=== PATIENT | male | born 1960 | race African-American/Black ===

== ENCOUNTER 2019-07-22 08:00 | Emergency (ER) | payer MEDICAID ==
[~2019-07-22] VITALS: Ht 180.3 cm; Wt 98.0 kg
[2019-07-22 08:02] VITALS: BP 131/72
--- NOTE | 2019-07-22 08:22 | NUR ---
ANNEALER: PT TO ROOM FROM [facility]
[2019-07-22 10:10] LABS: RAPID INFLUENZA A Negative (Negative); RAPID INFLUENZA B Negative (Negative)
== END 2019-07-22 11:11 | disposition home or self-care (01) ==
LOC: ED 10:22
DX: J00 Acute nasopharyngitis [common cold] (principal); J04.0 Acute laryngitis; B97.89 Other viral agents as the cause of diseases classified elsewhere; F17.200 Nicotine dependence, unspecified, uncomplicated
CPT/HCPCS: 71046; 87400; 99284

== ENCOUNTER 2019-10-12 10:33 | Emergency (ER) | payer MEDICAID ==
[~2019-10-12] VITALS: Ht 180.3 cm; Wt 96.0 kg
--- NOTE | 2019-10-12 10:39 | NUR ---
PT BIB [facility] FROM WORK. PER EMS, EMS CALLED TO SCENE FOR POSSIBLE SEIZURE AND POSSIBLE SYNCOPAL EVENT. PER EMS, [facility] 124 AND PT AAO X 4 FOR EMS. PT ARRIVED TO ED SITTING UPRIGHT ON GUIRNEY, AAO X 4, NAD, ROOM AIR, DRESSED IN GOWN AND ON FULL MONITOR. CALL LIGHT WITHIN REACH AND SIDERIAL X [address] WITH SEIZURE PADS IN PLACE. PER EMS, PT HAS HX SEIZURES AND NO LONGER TAKES MEDS FOR IT DUE TO FINANCIAL REASONS. PER EMS, PT HAD NO INCONTINENCE OR ORAL TRAUMA FROM SEIZURE. PIV ESTABLISHED EN ROUTE BY EMS.
--- NOTE | 2019-10-12 10:48 | NUR ---
AT BEDSIDE FOR EXAM.
--- NOTE | 2019-10-12 11:05 | NUR ---
PT TO CT.
--- NOTE | 2019-10-12 11:18 | NUR ---
PT BACK FROM CT.
--- NOTE | 2019-10-12 11:19 | NUR ---
LAB AT BEDSIDE.
[2019-10-12 11:42] LABS: ALBUMIN 3.3 g/dL (3.4-5.0); ANION GAP 7 mmol/L (5-15); CALCIUM 8.6 mg/dL (8.5-10.1); CHLORIDE 110 mmol/L (98-107)
[2019-10-12 11:45] LABS: ALANINE AMINOTRANSFERASE 26 U/L (12-78); ALKALINE PHOSPHATASE 76 U/L (45-117); BILIRUBIN,TOTAL 0.6 mg/dL (0.2-1.0); CREATININE 0.82 mg/dL (0.7-1.3); TOTAL PROTEIN 7.1 g/dL (6.4-8.2)
[2019-10-12 11:58] LABS: MEAN CORPUSCULAR HEMOGLOBIN 28.9 pg (27.5-34.5); MEAN CORPUSCULAR HGB CONC 32.1 g/dL (33.2-36.2); MEAN CORPUSCULAR VOLUME 90.2 fL (81-97); MEAN PLATELET VOLUME 10.1 fL (7.4-10.4); PLATELET COUNT 160 x10^3/uL (130-400); RED BLOOD COUNT 4.81 x10^6/uL (4.38-5.82); RED CELL DISTRIBUTION WIDTH 13.3 % (9.4-14.8)
[2019-10-12 12:00] LABS: MD SCAN
[2019-10-12 12:01] LABS: BASOPHILS # (AUTO) 0.01 x10^3/uL (0-0.1); BASOPHILS % (AUTO) 0 % (0-1); EOSINOPHILS # (AUTO) 0.07 x10^3/uL (0-0.4); EOSINOPHILS % (AUTO) 1 % (1-7); LYMPHOCYTES # (AUTO) 1.44 x10^3/uL (1-3.4); LYMPHOCYTES % (AUTO) 21 % (22-44); MONOCYTES # (AUTO) 0.39 x10^3/uL (0.2-0.8); MONOCYTES % (AUTO) 6 % (2-9); NEUTROPHILS # (AUTO) 4.93 x10^3/uL (1.8-6.8); NEUTROPHILS % (AUTO) 72 % (42-75)
--- NOTE | 2019-10-12 12:17 | NUR ---
ALL RESULTS BACK AT THIS TIME, CHART UP FOR RECHECK.
[2019-10-12] MEDS ORDERED: LEVETIRACETAM 1,500 MG in SODIUM CHLORIDE 0.9% 100 ML IV ONE (12:30)
[2019-10-12 12:55] VITALS: BP 117/62
--- NOTE | 2019-10-12 13:28 | NUR ---
Patient/Caregiver given discharge instructions and they have confirmed that they understand the instructions. Patient ambulatory with steady gait.
== END 2019-10-12 13:45 | disposition home or self-care (01) ==
LOC: ED 13:35
DX: R56.9 Unspecified convulsions (principal); R51 Headache
CPT/HCPCS: 36415; 70450; 71045; 80053; 83605; 85025; 93005; 96365; 99285; J1953

== ENCOUNTER 2020-02-16 05:01 | Emergency (ER) | payer MEDICAID ==
[~2020-02-16] VITALS: Ht 180.3 cm; Wt 100.4 kg
[2020-02-16 05:02] VITALS: BP 139/78
--- NOTE | 2020-02-16 05:09 | NUR ---
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
[2020-02-16] MEDS ORDERED: KETOROLAC 30 MG/1 ML IM ONE (05:30)
[2020-02-16] MEDS ORDERED: METHOCARBAMOL 750 MG TABLET PO ONE (05:30)
[2020-02-16] MEDS ORDERED: METHOCARBAMOL 750 MG TABLET ONE (05:31)
[2020-02-16] MEDS ORDERED: KETOROLAC 30 MG/1 ML ONE (05:31)
== END 2020-02-16 06:51 ==
LOC: ED 06:40
DX: S46.812A Strain of other muscles, fascia and tendons at shoulder and upper arm level, left arm, initial encounter (principal); R94.31 Abnormal electrocardiogram [ECG] [EKG]; F17.290 Nicotine dependence, other tobacco product, uncomplicated; W20.8XXA Other cause of strike by thrown, projected or falling object, initial encounter; Y93.89 Activity, other specified; Y92.89 Other specified places as the place of occurrence of the external cause; Y99.0 Civilian activity done for income or pay
CPT/HCPCS: 71046; 73030; 93005; 96372; 99284; J1885

== ENCOUNTER 2020-02-19 06:17 | Emergency (ER) | payer MEDICAID ==
[~2020-02-19] VITALS: Ht 177.8 cm; Wt 102.1 kg
--- NOTE | 2020-02-19 07:04 | NUR ---
ASSUMED CARE OF PT AT THIS TIME FROM [facility] AT THIS TIME. AMBULATORY TO ROOM WITH STEADY GAIT. A&OX4. 59 Y/O M PRESENTS STATING "LEFT ARM PAIN WORSE AFTER HELPING DAUGHTER MOVE OR WHEN PANS FELL ON ME AT WORK," SEEN HERE 5 DAYS AGO FOR SAME, DX WITH MUSCLE STRAIN. CMS INTACT. RADIAL PULSE NORMAL AND STRONG. +ROM. PT STATES "I WANT TO WORK AND I NEED A NOTE FOR WORK FOR RESTRICTED DUTY OF MY BOSS WON'T LET ME WORK BECAUSE I WAS FAVORING IT." CONT PULSE OX, BP MONITORS APPLIED. VSS. CALL LIGHT IN REACH. FALL PRECUATIONS IN PLACE. SJ HERNANDEZ AT BEDSIDE FOR EVAL, AWAITING ORDERS.
--- NOTE | 2020-02-19 07:47 | NUR ---
PT AMBULATORY TO RESTROOM WITH STEADY GAIT. RESTING COMFORTABLY. VSS. CMS INTACT. AWAITING DISCHARGE PAPERS AND WORK NOTE FROM [facility]
[2020-02-19 08:10] VITALS: BP 140/84
== END 2020-02-19 08:29 | disposition home or self-care (01) ==
LOC: ED 07:50
DX: M25.512 Pain in left shoulder (principal)
CPT/HCPCS: 99282

== ENCOUNTER 2020-04-15 07:18 | Emergency (ER) | payer MEDICAID ==
[~2020-04-15] VITALS: Ht 180.3 cm; Wt 98.3 kg
--- NOTE | 2020-04-15 07:39 | NUR ---
PT AMBULATORY TO ROOM 7 W/ C/O LOWER BACK PAIN STARTED 2 DAYS AGO. PT STATES IT STARTED WHEN HE AWOKE AND IT GOT WORSE THROUGHOUT THE DAY WHILE AT WORK. DENIES LIFTING ANYTHING HEAVY. DENIES INJURY/TRAUMA TO AREA. PT RESTING ON GURNEY. NADN. EUCEDA. JACE WOOTEN AT BEDSIDE.
[2020-04-15 07:45] VITALS: BP 110/73
--- NOTE | 2020-04-15 07:45 | NUR ---
PT RESTING ON GURNEY. NADN. EUCEDA.
[2020-04-15] MEDS ORDERED: KETOROLAC 30 MG/1 ML IM ONE (08:00)
[2020-04-15] MEDS ORDERED: ONDANSETRON ODT 4 MG PO ONE (08:00)
[2020-04-15] MEDS ORDERED: HYDROcodone/APAP 5/325 TABLET PO ONE (08:00)
[2020-04-15] MEDS ORDERED: CYCLOBENZAPRINE 10 MG TABLET PO ONE (08:00)
--- NOTE | 2020-04-15 08:07 | NUR ---
PT TO AND FROM XR IN STABLE CONDITION.
[2020-04-15] MEDS ORDERED: ONDANSETRON ODT 4 MG ONE (08:10)
[2020-04-15] MEDS ORDERED: HYDROcodone/APAP 5/325 TABLET ONE (08:11)
[2020-04-15] MEDS ORDERED: KETOROLAC 30 MG/1 ML ONE (08:11)
[2020-04-15] MEDS ORDERED: CYCLOBENZAPRINE 10 MG TABLET ONE (08:17)
--- NOTE | 2020-04-15 08:38 | NUR ---
Patient/Caregiver given discharge instructions and they have confirmed that they understand the instructions. Patient ambulatory with steady gait.
== END 2020-04-15 08:40 | disposition home or self-care (01) ==
LOC: ED 08:00
DX: M54.42 Lumbago with sciatica, left side (principal)
CPT/HCPCS: 72110; 96372; 99283; J1885; Q0162

== ENCOUNTER 2020-06-08 14:00 | Emergency (ER) | payer MEDICAID ==
[~2020-06-08] VITALS: Ht 180.3 cm; Wt 99.1 kg
[2020-06-08 14:22] VITALS: BP 125/73
--- NOTE | 2020-06-08 15:23 | NUR ---
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
--- NOTE | 2020-06-08 15:28 | NUR ---
PATIENT WALKED BACK FROM TRIAGE WITH CHIEF C/O HAND LACERATION. PATIENT STATES HE WAS AT WORK, AT THE [employer] AND CUT HIS RIGHT HAND ABOUT 1300. LACERATION IS NOT BLEEDING, LOCATED BETWEEN THUMB AND POINTER FINGER. NO SIGNS OF ACUTE DISTRESS.
[2020-06-08] MEDS ORDERED: LIDOCAINE-MPF 1%, 5ML ONE (16:15)
--- NOTE | 2020-06-08 16:20 | NUR ---
ER PA AT BEDSIDE FOR SUTURE PLACEMENT
[2020-06-08] MEDS ORDERED: LIDOCAINE 1%, 10ML INFIL ONE (16:30)
[2020-06-08] MEDS ORDERED: NEOSPORIN OINT. PKT 1 PACKET ONE (16:37)
--- NOTE | 2020-06-08 16:49 | NUR ---
Patient given discharge instructions and they have confirmed that they understand the instructions, all questions answered. Workers Comp paperwork given to patient filled out. Patient ambulatory with steady gait to discharge desk.
== END 2020-06-08 16:50 | disposition home or self-care (01) ==
LOC: ED 15:35
DX: S61.210A Laceration without foreign body of right index finger without damage to nail, initial encounter (principal); F17.200 Nicotine dependence, unspecified, uncomplicated; W26.0XXA Contact with knife, initial encounter; Y93.89 Activity, other specified; Y92.89 Other specified places as the place of occurrence of the external cause; Y99.0 Civilian activity done for income or pay
CPT/HCPCS: 12001; 99282

== ENCOUNTER 2020-10-29 08:09 | Emergency (ER) | payer MEDICAID ==
[~2020-10-29] VITALS: Ht 180.3 cm; Wt 102.5 kg
--- NOTE | 2020-10-29 08:36 | NUR ---
60 YO MALE CAME IN W/ C/O LOW BACK PAIN THAT RAIDATES TO UPPER BACK FROM BENDING OVER AT WORK. 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 PT STATES PAIN IS 10/10 WHEN MOVING. PT STATES IT IS DIFFICULT TO PREFORM ADLS. PATIENT RESTING IN BED TO COMFORT WITH FAMILY AT BEDSIDE. PT STATES FOR THE LAST 6 YEARS HAS HAD BACK PAIN, THIS PAIN IS DIFFERENT "BECAUSE I CANNOT BEND OVER"
[2020-10-29] MEDS ORDERED: KETOROLAC 60 MG/2 ML ONE (08:58)
[2020-10-29] MEDS ORDERED: CYCLOBENZAPRINE 10 MG TABLET ONE (08:58)
[2020-10-29] MEDS ORDERED: KETOROLAC 30 MG/1 ML IM ONE (09:00)
[2020-10-29] MEDS ORDERED: CYCLOBENZAPRINE 10 MG TABLET PO ONE (09:00)
[2020-10-29 09:07] VITALS: BP 135/72
== END 2020-10-29 09:58 | disposition home or self-care (01) ==
LOC: ED 09:01
DX: S39.012A Strain of muscle, fascia and tendon of lower back, initial encounter (principal); F17.200 Nicotine dependence, unspecified, uncomplicated; X58.XXXA Exposure to other specified factors, initial encounter; Y93.89 Activity, other specified; Y92.89 Other specified places as the place of occurrence of the external cause; Y99.8 Other external cause status
CPT/HCPCS: 96372; 99283; J1885

== ENCOUNTER 2021-01-02 10:45 | Emergency (ER) | payer MEDICAID ==
[~2021-01-02] VITALS: Ht 175.3 cm; Wt 104.9 kg
[2021-01-02] MEDS ORDERED: METHOCARBAMOL 750 MG TABLET PO ONE (11:30)
[2021-01-02] MEDS ORDERED: KETOROLAC 30 MG/1 ML IM ONE (11:30)
[2021-01-02] MEDS ORDERED: METHOCARBAMOL 750 MG TABLET ONE (11:37)
[2021-01-02] MEDS ORDERED: KETOROLAC 30 MG/1 ML ONE (11:37)
[2021-01-02 11:43] LABS: BASOPHILS % (AUTO) 1 % (0-1); EOSINOPHILS % (AUTO) 2 % (1-7); LYMPHOCYTES % (AUTO) 24 % (22-44); MEAN CORPUSCULAR HGB CONC 32.2 g/dL (33.2-36.2); MEAN PLATELET VOLUME 9.9 fL (7.4-10.4); MONOCYTES % (AUTO) 6 % (2-9); NEUTROPHILS % (AUTO) 68 % (42-75); PLATELET COUNT 174 x10^3/uL (130-400); RED BLOOD COUNT 5.19 x10^6/uL (4.38-5.82); RED CELL DISTRIBUTION WIDTH 13.6 % (9.4-14.8)
[2021-01-02 11:51] LABS: ALBUMIN 3.6 g/dL (3.4-5.0); ANION GAP 4 mmol/L (5-15); CALCIUM 8.9 mg/dL (8.5-10.1); CHLORIDE 107 mmol/L (98-107); CREATININE 0.94 mg/dL (0.7-1.3)
[2021-01-02 12:10] LABS: MD SCAN
[2021-01-02 12:37] LABS: MICROSCOPIC NOT IND
[2021-01-02 13:21] VITALS: BP 147/82
== END 2021-01-02 13:22 | disposition home or self-care (01) ==
LOC: ED 11:23
DX: M47.816 Spondylosis without myelopathy or radiculopathy, lumbar region (principal); R07.89 Other chest pain; R94.31 Abnormal electrocardiogram [ECG] [EKG]
CPT/HCPCS: 36415; 72110; 80048; 81003; 82040; 85025; 93005; 96372; 99285; J1885

== ENCOUNTER 2021-02-01 12:04 | Emergency (ER) | payer MEDICAID ==
[~2021-02-01] VITALS: Ht 177.8 cm; Wt 101.8 kg
--- NOTE | 2021-02-01 12:21 | NUR ---
PT BIB EMS FOR CP WHILE AT WORK. PT DENIES SOB OR N/V. PAIN INITIALLY 03/27 BUT NOW GONE AFTER EMS TX. PT DESCRIBED PAIN PRESSURE, NON-RADIATING. PT HAS BEEN EXPERIENCING STRESS AT HOME RECENTLY AND WAS BUSY AT WORK. PT GOT 324 ASPIRIN AND 0.4 MG NTG. PIV ESTABLISHED BY EMS ANIMAL RIDE ATTENDANT. PT RESTING ON ED GURNEY WITH MONITORING IN PLACE.
[2021-02-01] MEDS ORDERED: SODIUM CHLORIDE FLUSH 10ML SYR IVF ONE (12:30)
[2021-02-01 12:52] LABS: ALANINE AMINOTRANSFERASE 32 U/L (12-78); ALBUMIN 3.3 g/dL (3.4-5.0); ANION GAP 6 mmol/L (5-15); CALCIUM 8.5 mg/dL (8.5-10.1); CHLORIDE 111 mmol/L (98-107); CREATININE 0.87 mg/dL (0.7-1.3)
[2021-02-01 12:53] LABS: BASOPHILS % (AUTO) 1 % (0-1); EOSINOPHILS % (AUTO) 2 % (1-7); LYMPHOCYTES % (AUTO) 26 % (22-44); MEAN CORPUSCULAR HEMOGLOBIN 30.3 pg (27.5-34.5); MEAN CORPUSCULAR HGB CONC 32.8 g/dL (33.2-36.2); MEAN PLATELET VOLUME 10.5 fL (7.4-10.4); MONOCYTES % (AUTO) 6 % (2-9); NEUTROPHILS % (AUTO) 65 % (42-75); PLATELET COUNT 149 x10^3/uL (130-400); RED CELL DISTRIBUTION WIDTH 13.7 % (9.4-14.8)
[2021-02-01 12:56] LABS: ALKALINE PHOSPHATASE 84 U/L (45-117); BILIRUBIN,TOTAL 0.4 mg/dL (0.2-1.0); TOTAL PROTEIN 7.5 g/dL (6.4-8.2); TROPONIN I < 0.015 ng/mL (0.000-0.045)
[2021-02-01 13:18] VITALS: BP 124/74
--- NOTE | 2021-02-01 13:18 | NUR ---
Jasiel estevezmichele in ED - 02/01/21 at 1320 by [email or web address] BEDSIDE REPORT FROM THOMAS MARTINEZ FOR TRANSFER OF PATIENT CARE. PROVIDED WARMER TO PATIENT, NADN, CONNECTED TO MONITOR, VSS, CALL LIGHT WITHIN REACH.
--- NOTE | 2021-02-01 13:50 | NUR ---
ERMD AT BEDSIDE TO DISCUSS POC.
--- NOTE | 2021-02-01 14:00 | NUR ---
IV removed with tip intact. Patient given discharge instructions and prescriptions and they have confirmed that they understand the instructions. Patient stable and ambulatory with steady gait. NAD, all questions answered appropriately, denies additional needs at this time. No personal belongings left in room after discharge.
== END 2021-02-01 14:01 | disposition home or self-care (01) ==
LOC: ED 13:54
DX: R07.89 Other chest pain (principal); R94.31 Abnormal electrocardiogram [ECG] [EKG]
CPT/HCPCS: 36415; 71045; 80053; 84484; 85025; 93005; 99285